=== PATIENT | female | born 1940 | race Caucasian/White ===

== ENCOUNTER 2024-10-13 10:22 | Outpatient (AMB) | payer OTHER, SELFPAY ==
--- NOTE | 2024-10-13 10:29 | A.OFFPC_ITS ---
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 Intake Note: New patient visit Grade Tamper Required: No Accompanied by: Daughter Allergies No Known Allergies Allergy (Verified 10/13/24 16:22) Tobacco use date assessed: 10/13/24 Fall risk assessment: No Falls in past year Last assessed Fall Risk: 10/13/24 Dental Screening Dental Screen Date: 10/13/24 Did you have a dental visit in the last 12 months?: Yes Did you have a dental problem in the last 6 months where you did not have access to dental care?: No Was dental information given to patient?: Patient has dentist HPI HPI Comments History of Present Illness Details The patient is an 84 year old female with a past medical history of afib, anxiety, PTSD, anemia, hypothyroid, osteoporosis presenting to [facility]. Transferring from [facility] (from [facility]) CV: on eliquis, toprol 25mg daily. Follows with [facility], Dr Marrero () and Dr Hdz. Anxiety: On [facility] History of cataract. Follows with Dr Jeter MSK: Has seen NS in the past Follows with [facility] for osteoporosis. DXA 2022 and recently repeated-back in osteopenia category Stopped mammo at 74 ROS CONSTITUTIONAL: Denies weight loss, fever and chills. HEENT: Denies changes in vision and hearing. RESPIRATORY: Denies SOB and cough. CV: Denies palpitations and CP GI: Denies abdominal pain, nausea, vomiting and diarrhea. : Denies dysuria and urinary frequency. MSK: Denies new myalgia and joint pain. SKIN: Denies rash and pruritus. NEUROLOGICAL: Denies headache PSYCHIATRIC: Denies recent changes in mood. PHYSICAL EXAM: GENERAL: Alert and oriented x 3. NAD EYES: EOMI. Anicteric. HENT: Moist mucous membranes. No scleral icterus. No cervical lymphadenopathy. LUNGS: Clear to auscultation bilaterally. CARDIOVASCULAR: Regular rate and rhythm. No murmur. No JVD. ABDOMEN: Soft, non-tender +bs EXTREMITIES: No edema. Non-tender. SKIN: No rashes or lesions. Warm. NEUROLOGIC: No focal neurological deficits. CN II-XII grossly intact PSYCHIATRIC: Cooperative. Appropriate mood and affect [facility] Social History Housing: House (upstairs in daughters home) Patient Tobacco Use Status: Never used Tobacco e-Cigarette/Vaping Use: Never Used Second Hand Smoke Exposure: No service: No Current occupational status: retired Cognitive needs: No Hearing needs: No Vision needs: Yes (reading glasses) Questionnaire PHQ-9 Over the last 2 weeks, how often have you been bothered by any of the following problems? 1. Little interest or pleasure in doing things: not at all 2. Feeling down, depressed, or hopeless: not at all 3. Trouble falling or staying asleep, or sleeping too much: not at all 4. Feeling tired or having little energy: not at all 5. Poor appetite or overeating: not at all 6. Feeling bad about yourself - or that you are a failure or have let yourself or your family down: not at all 7. Trouble concentrating on things, such as reading the newspaper or watching television: not at all 8. Moving or speaking so slowly that other people could have noticed. Or the opposite - being so fidgety or restless that you have been moving around a lot m ore than usual: not at all 9. Thoughts that you would be better off or of hurting yourself in some way: not at all Total score: 0 Depression Screening Interpretation: Negative Depression Screening Done: Yes 92555 - PHQ-9 Billing: Yes Source: Developed by Drs. Poli Lopez, Soumya Laughlin, Anish Cardona and colleagues, with an educational yogesh from [employer]. Thrive Questionnaire Date Thrive assessed: 10/06/24 I am a: Patient What is your living situation today?: I have a steady place to live Within the past 12 months, did the food you bought not last and you didn't have the money to get more?: Never true Within the past 12 months, did you worry whether your food would run out before you got money to buy more?: Never true Do you have trouble paying for medicines?: No Do you have trouble getting transportation to medical appointments?: No Do you have trouble paying your heating and electricity bill?: No Do you have trouble taking care of your child, family member or friend?: No Do you have trouble with day-to-day activities such as bathing, preparing meals, shopping, managing finances, etc.?: No Are you currently unemployed and looking for a job?: No Are you interested in more education?: No Please select the resources that you would like help with: None Currently or been in a relationship where the following occur: No concerns reported THRIVE Score: 0 AUDIT C Alcohol Use Questionnaire (AUDIT-C) 1. How often do you have a drink containing alcohol?: Never 2. How many drinks containing alcohol do you have on a typical day when you are drinking?: 1 or 2 3. How often do you have six or more drinks on one occasion?: Never Total Score: 0 JESSEE-7 AMB Questionnaire JESSEE-7 Date JESSEE - 7 assessed: 10/13/24 Feeling nervous, anxious, or on edge: 0 = Not at all Not being able to stop or control worryin = Not at all Worrying too much about different things: 0 = Not at all Trouble relaxin = Not at all Being so restless that it is hard to sit still: 0 = Not at all Becoming easily annoyed or irritable: 0 = Not at all Feeling afraid as if something awful might happen: 0 = Not at all Total JESSEE-7 score (0-4 normal; 5-9 mild; 10-14 moderate; 15-21 severe): 0 Source: Developed by Drs. Poli Lopez, Soumya Laughlin, Anish Cardona and colleagues, with an educational yogesh from [employer]. JESSEE-7 Assessment Billing JESSEE-7 Assessment Tool: JESSEE-7 Assessment 33644 Physical exam (Primary Care) Vital Signs: Last Vital Signs Pulse 68 10/13/24 10:39 Resp 14 10/13/24 10:39 BP 110/56 L 10/13/24 10:39 Pulse Ox 98 10/13/24 10:39 Oxygen Delivery Method Room Air 10/13/24 10:39 BMI result Body Mass Index 24.2 Tobacco/Smoking Status: Tobacco use Status Tobacco use date assessed 10/13/24 10/13/24 10:39 Patient Tobacco Use Status Never used Tobacco 10/13/24 10:39 e-Cigarette/Vaping Use Never Used 10/13/24 10:39 PHQ-9: PHQ-9 Score PHQ-9: Total score 0 10/13/24 16:26 Depression Screening Interpretation: Negative Thrive Assessment: Date of Thrive Assessment Date Thrive assessed 10/06/24 10/13/24 10:32 Currently or been in a relationship where the following occur: No concerns reported Coding Level of Care Code New Pt Level 4 (99818) Diagnoses Encounter to establish care Z76.89 Age related osteoporosis, unspecified pathological fracture presence M81.0 Osteoporosis type: age-related Presence of current pathological fracture: unspecified Paroxysmal atrial fibrillation I48.0 Atrial fibrillation type: paroxysmal Borderline abnormal TFTs R94.6 Additional Codes JESSEE-7 Assessment Billing - JESSEE-7 Assessment Tool: JESSEE-7 Assessment 90278 ([id number]) PHQ-9 - 17940 - PHQ-9 Billing: Yes ([id number]) Assessment & Plan Assessment & Plan (1) Encounter to establish care: Code(s): Z76.89 - Persons encountering health services in other specified circumstances Category: Medical (2) Osteoporosis: Code(s): M81.0 - Age-related osteoporosis without current pathological fracture Category: Medical Qualifiers: Osteoporosis type: age-related Presence of current pathological fracture: unspecified Qualified Code(s): M81.0 - Age-related osteoporosis without current pathological fracture (3) Atrial fibrillation: Code(s): I48.91 - Unspecified atrial fibrillation Category: Medical Qualifiers: Atrial fibrillation type: paroxysmal Qualified Code(s): I48.0 - Paroxysmal atrial fibrillation (4) Borderline abnormal TFTs: Code(s): R94.6 - Abnormal results of thyroid function studies Category: Medical Plan 84 to establish care Past medical, surgical, social reviewed Medications reconcile Labs ordered Follow up q6-12 months Orders: Orders Complete Blood Count Auto Diff 10/13/24 I48.0 - Paroxysmal atrial fibrillation, M48.50XA - Collapsed vertebra, not elsewhere classified, site unspecified, initial encounter for fracture, M81.0 - Age-related osteoporosis without current pathological fracture, R94.6 - Abnormal results of thyroid function studies, Z76.89 - Persons encountering health services in other specified circumstances Hemoglobin A1c 10/13/24 I48.0 - Paroxysmal atrial fibrillation, M48.50XA - Collapsed vertebra, not elsewhere classified, site unspecified, initial encounter for fracture, M81.0 - Age-related osteoporosis without current pathological fracture, R94.6 - Abnormal results of thyroid function studies, Z76.89 - Persons encountering health services in other specified circumstances Comprehensive Met. Panel 10/13/24 I48.0 - Paroxysmal atrial fibrillation, M48.50XA - Collapsed vertebra, not elsewhere classified, site unspecified, initial encounter for fracture, M81.0 - Age-related osteoporosis without current pathological fracture, R94.6 - Abnormal results of thyroid function studies, Z76.89 - Persons encountering health services in other specified circumstances Lipid Panel 10/13/24 I48.0 - Paroxysmal atrial fibrillation, M48.50XA - Colla psed vertebra, not elsewhere classified, site unspecified, initial encounter for fracture, M81.0 - Age-related osteoporosis without current pathological fracture, R94.6 - Abnormal results of thyroid function studies, Z76.89 - Persons encountering health services in other specified circumstances TSH reflex Free T4 10/13/24 I48.0 - Paroxysmal atrial fibrillation, M48.50XA - Collapsed vertebra, not elsewhere classified, site unspecified, initial encounter for fracture, M81.0 - Age-related osteoporosis without current pathological fracture, R94.6 - Abnormal results of thyroid function studies, Z76.89 - Persons encountering health services in other specified circumstances
[2024-10-13 10:39] VITALS: BP 110/56; PULSE 68; RESP 14; O2SAT 98; BMI 24.2
--- OUTSIDE RECORDS SUMMARY | 2024-10-13 11:55 | XMS_ITS | Clinical Summary ---
Author Organization [facility] Address [address] [place] [address] Phone Care Team Providers Care Price Checker Name Role Phone Hina Green MD Primary Care Provider [phone] Allergies Active Allergy Reactions Criticality Noted Date Comments Aspirin Anaphylaxis High 05/26/2020 Codeine Headache High 05/26/2020 Epinephrine Nausea And Vomiting High 05/26/2020 Opioids - Morphine Analogues Nausea And Vomiting 04/29/2024 Medications ashwagandha extract 500 mg capsule Take 1 Capsule by mouth daily. Active enzymes,digestive (DIGESTIVE ENZYMES ORAL) Take by mouth 3 times daily (with meals). Active doxylamine succinate (SLEEP AID, DOXYLAMINE, ORAL) Take 1 Tablet by mouth at bedtime. Active meclizine HCl (MECLIZINE ORAL) Take 1 tablet by mouth daily as needed. Active magnesium aspart,citrate,ox sandra (Triple Magnesium Complex) 400 mg magnesium capsule Take by mouth at bedtime. Active teriparatide (FORTEO) 20 mcg/dose (600mcg/2.4mL) injection Inject 0.08 mL (20 mcg total) under the skin 1 (one) time each day. Active apixaban (Eliquis) 2.5 mg tablet Take 1 tablet (2.5 mg total) by mouth 2 (two) times a day. 180 tablet 3 Active furosemide (LASIX) 20 mg tabletIndications :Paroxysmal atrial fibrillation (CMS/HCC V24, CMS/HCC V28),Atrial flutter, unspecified type (CMS/HCC V24, CMS/HCC V28),Tachy-jesus syndrome (CMS/HCC V24, CMS/HCC V28) Take 1 tablet (20 mg total) by mouth if needed. 5 Active metoprolol succinate (TOPROL-XL) 50 mg 24 hr tablet 1 tab daily 90 tablet 1 5 Active metoprolol succinate (Toprol XL) 25 mg 24 hr tablet Take 1 tablet (25 mg total) by mouth 1 (one) time each day. Do not crush or chew. 30 each 5 08/28/19 26 Active Active Problems Problem Noted Date Diagnosed Date Nonrheumatic tricuspid valve regurgitation 08/27 Atrial fibrillation with RVR (CMS/HCC V24, CMS/H CC V28) 04/06/2024 Assessment & Plan (07/15/2024 12:43 PM EST): Patient states that she feels remarkably better after her ablation. Her peripheral edema is resolved. She has no evidence of heart failure she has had no palpitations she has had no bleeding issues. We discussed the possibility of discontinuation of anticoagulation in the future that would be dependent on a 30-day monitor showing no A-fib and then a shared decision making. But for the present time I would continue with anticoagulation The above note was prepared with the help of voice recognition software. Please excuse any grammatical or spelling errors that may have occurred Assessment & Plan (04/13/2024 10:24 AM EST): Orders: ECG 12 lead Nuclear stress test with myocardial perfusion; Future Transthoracic echocardiogram (TTE) complete with PRN contrast, bubble, strain, and 3D order panel; Future Cardiac holter monitor (<= 48 hours); Future Compression fracture of body of thoracic vertebra ([facility] V24, CMS/HCC V28) 03/22/2022 Overview (04/02/2024): Last Assessment & Plan: Patient is 11 days s/p T7, T10 kyphoplasty. She states the procedure helped her preop back pain, she is able to do more around the house, sleep better. She has had no issues with the incisions, denies wound drainage, fever, sweats chills. Her main concern today that she was bringing up was that because of her scoliosis and short stature her lower rib tends to rub on her iliac crests bilaterally, she states this is a chronic problem, she was hoping there would be some type of a brace she could wear to lift the rib cage up. Ms. White is doing well s/p kyphoplasty which alleviated her back pain. She is concerned about her scoliosis, we talked about trying physical therapy for core strengthening and helping her posture. Also reviewed her case with Dr. Ballard, see if she has any additional recommendations. Patient states she is not interested in surgery for the scoliosis at this time. All questions answered. Prescription for PT given to patient. Murmur 12/16/2020 Assessment & Plan (04/13/2024 10:24 AM EST): She does have mild mitral regurgitation. She is asymptomatic from this at this time. We will update an echocardiogram. Agoraphobia 06/02/2020 Chronic atrial fibrillation (CMS/HCC V24, CMS/HC C V28) 06/02/2020 Assessment & Plan (04/30/2024 4:58 AM EST): Orders: ECG 12 lead Assessment & Plan (04/13/2024 10:24 AM EST): Patient has history of paroxysmal atrial fibrillation. She continues on anticoagulation with Eliquis 2.5 mg twice daily given her weight and advanced age. She was recently seen in the ER with Afib RVR and was given increased dose of metoprolol. We will update an echocardiogram to assess her cardiac function. We will arrange for a nuclear stress test to assess for ischemia and pvc monitor monitor to evaluate her overall heart rate. We will also arrange for EP evaluation. She continues to have increased heart rates, but asymptomatic. I am concerned about increasing rate control more due to history of bradycardia on monitor in the past. Orders: Nuclear stress test with myocardial perfusion; Future Transthoracic echocardiogram (TTE) complete with PRN contrast, bubble, strain, and 3D order panel; Future Cardiac holter monitor (<= 48 hours); Future Glaucoma 06/02/2020 Overview (04/02/2024): Bilaterally Hyperlipidemia 06/02/2020 Assessment & Plan (04/13/2024 10:24 AM EST): Patient's last LDL cholesterol was 108. She continues on red yeast rice. Major depressive disorder, r ecurrent episode, moderate (CMS/HCC V24, CMS/HCC V28) 06/02/2020 Osteoporosis 06/02/2020 DDD (degenerative disc disease), lumbar 05/26/19 Overview (04/02/2024): Pathological fracture of lumbar vertebra. PTSD (post-traumatic stress disorder) 05/26/2020 Resolved Problems Problem Noted Date Diagnosed Date Resolved Date Tachycardia 04/06/2024 04/13/2024 Abnormal EKG 12/14/2020 04/13/2024 Overview (04/02/2024): Last Assessment & Plan: She does have an abnormal EKG. She does have nonspecific T wave changes in anterolateral leads. She has no symptoms at this time to suspect unstable angina. She denies any chest pain or shortness of breath now or in the past. Again we will be checking her echocardiogram. We did discuss that her potassium levels are still high normal and this could affect her EKG. We did briefly review some of her [id number] supplements as she could be getting extra potassium and be unaware of this. Encounters Date Type Department Care Team Description 08/27/2024 9:40 AM EDT Office Visit [facility] - [address] [place] [address] Xiomara Barrett PA Atrial fibrillation with RVR (CMS/HCC V24, CMS/HCC V28) (Primary Dx); Murmur; Nonrheumatic tricuspid valve regurgitation 07/15/2024 10:20 AM EST Office Visit [facility] [address] [place] [id number] Heber Dukes MD Atrial fibrillation with RVR (CMS/HCC V24, CMS/HCC V28) (Primary Dx) from Last 3 Months Surgical History Surgery Date Site/Laterality Comments CATARACT EXTRACTION PROCEDURE: HISTORICAL CATARACT REMOVAL TOTAL KNEE ARTHROPLASTY PROCEDURE: HISTORICAL TOTAL KNEE REPLACE TONSILLECTOMY 1948 PROCEDURE: HISTORICAL TONSILLECTOMY OTHER SURGICAL HISTORY 05/24/2022 PROCEDURE: [place] PERQ VERT AGMNTJ CAVITY CRTJ UNI/BI CANNULJ LMBR; COMMENT: T7, T10 kyphoplasty, Dr. Ballard. Path: Benign ABLATION DONE ON 05/22/2024 AT [facility] Medical History Medical History Date Comments PTSD (post-traumatic stress disorder) 05/26/2020 DX:PTSD (post-traumatic stress disorder) DDD (degenerative disc disea se), lumbar 05/26/2020 DX:DDD (degenerative disc di sease), lumbar; COMMENT: Pathological fracture lumbar vertebra History of left knee replacement 05/26/2020 DX:History of left knee replacement Major depressive disorder, r ecurrent episode, moderate (CMS/HCC V24, CMS/HCC V28) 06/02/2020 DX:Major depressive disorder , recurrent episode, moderate ([facility]) Agoraphobia 06/02/2020 DX:Agoraphobia Hyperlipidemia 06/02/2020 DX:Hyperlipidemi a Osteoporosis 06/02/2020 DX:Osteoporosis Glaucoma 06/02/2020 DX:Glaucoma; COM MENT: Bilaterally History of skin cancer 06/02/2020 DX:Histor y of skin cancer; COMMENT: Face, per patient. S/P cataract surgery 05/26/2020 DX:S/P jarret ract surgery Atrial fibrillation (CMS/HCC V24, CMS/HCC V28) DX:Atrial fibrillation (HCC) Family History Medical History Relation Name Comments Heart attack Father Stroke Mother Relation Name Status Comments Father Mother Social History Tobacco Use Types Packs/Day Years Used Date Smoking Tobacco: Never Smokeless Tobacco: Never Tobacco Cessation:Counseling Given: Not Answered Alcohol Use Standard Drinks/Week Comments Never 0 (1 standard drink = 0.6 oz pur e alcohol) Comments Unknown Sex and Gender Information Value Date Recorded Sex Assigned at Not on file Legal Sex Female 3:42 PM EST Gender Identity Not on file Sexual Orientation Not on file Obstetrics History Last Filed Vital Signs Vital Sign Reading Time Taken Comments Blood Pressure 112/60 08/27/2024 9:40 AM EDT Pulse 61 08/27/2024 9:40 AM EDT Temperature - - Respiratory Rate - - Oxygen Saturation 99% 08/27/2024 9:40 AM EDT Inhaled Oxygen Concentration - - Weight 58.1 kg (128 lb) 08/27/2024 9:40 AM EDT Height 154.9 cm (5' 1 ) 08/27/2024 9:40 AM EDT Body Mass Index 24.19 08/27/2024 9:40 AM EDT Plan of Treatment Upcoming Encounters Date Type Department Care Team (Late st Contact Info) Description 01/20/2025 10:40 AM EDT Office Visit [facility] [address] [place] [address] [place] [address] Radha Harris NP [address] [place] [address] [address] [place] [address] 03/01/2025 9:40 AM EDT Office Visit [facility] - [address] [place] [address] Xiomara Barrett PA [address] [place] [address] Health Maintenance Due Date Last Done Comments DTaP,Tdap,and Td Vaccines (1 - Tdap) 1959 Pneumococcal Vaccine: 50+ Years (1 of 2 - PCV) 1958 Zoster Vaccines (1 of 2) 1989 IPV Vaccines (2 of 3 - Adult catch-up series) 01/17/2006 12/20/2005 RSV Immunization Adult Patients (1 - 1-dose 75+ series) 2014 Depression Screening 04/11/2022 Falls Risk Assessment 04/11/2022 Medicare Annual Wellness Visit 04/11/2022 Osteoporosis Screening (Bone Density Screening) 04/11/2022 Social Influencers of Health Screening 04/11/2022 COVID-19 Vaccine (4 - 2023-2 5 season) 2024 09/22/2021, 03/28/2021, 08/21/2020 Influenza Vaccine (Season Ended) 2025 Cholesterol Screening (Lipid Panel) 09/01/2028 09/02/2023 Hepatitis A Vaccines Aged Out 12/20/2005 No long er eligible based on patient's age to complete this topic HIB Vaccines Aged Out No longer eligi ble based on patient's age to complete this topic HPV Vaccines Aged Out No longer eligi ble based on patient's age to complete this topic Hepatitis B Vaccines Aged Out No long er eligible based on patient's age to complete this topic MMR Vaccines Aged Out No longer eligi ble based on patient's age to complete this topic Meningococcal ACWY Vaccine Aged Out N o longer eligible based on patient's age to complete this topic Meningococcal B Vaccine Aged Out No l onger eligible based on patient's age to complete this topic RSV Immunization Patients Under 20 months Aged Out No longer eligible b ased on patient's age to complete this topic Varicella Vaccines Aged Out No longer eligible based on patient's age to complete this topic Procedures Procedure Name Priority Date/Time Associated Diagnosis Comments LIPID PANEL Routine 09/02/2023 from Last 3 Months or Most Recently Relevant to Health Maintenance Results * Lipid panel (09/02/2023) LDL/HDL Ratio 0 Comment:No Interpretation Triglycerides 0 mg/dL Comment:No Interpretation Cholesterol 0 mg/dL Comment:No Interpretation HDL 0 mg/dL Comment:No Interpretation LDL Cholesterol 0 mg/dL Comment:No Interpretation Blood Venous blood specimen / Unknown Historical Provider LAB BLOOD ORDERABLES Heidi l Result from Last 3 Months or Most Recently Relevant to Health Maintenance Insurance [facility] [place] [address] [employer] MED[employer]ARE Care Teams Price Checker Relationship Specialty Start Date End Date Hina Green MD [address] [place] [id number] PCP - General Internal Medicine 08/27/24
== END 2024-10-13 11:07 | disposition home or self-care (01) ==
LOC: HO.HMCFM 10:22
PROVIDERS: PCP Internal Medicine; Visit Provider Internal Medicine
DX: Z76.89 Persons encountering health services in other specified circumstances (principal); M81.0 Age-related osteoporosis without current pathological fracture; I48.0 Paroxysmal atrial fibrillation; R94.6 Abnormal results of thyroid function studies

== ENCOUNTER → 2024-10-13 10:22 | Outpatient (BNVA) | payer OTHER, SELFPAY | PROVIDERS: PCP Internal Medicine; Visit Provider Internal Medicine | DX: Z76.89 Persons encountering health services in other specified circumstances (principal); M81.0 Age-related osteoporosis without current pathological fracture; I48.0 Paroxysmal atrial fibrillation; R94.6 Abnormal results of thyroid function studies; F41.9 Anxiety disorder, unspecified; Z79.01 Long term (current) use of anticoagulants | CPT/HCPCS: 96127 ==

== ENCOUNTER 2024-10-13 11:25 | Outpatient (REF) | payer OTHER, SELFPAY ==
[2024-10-13 14:53] LABS: MANUAL DIFF FLAG NO
[2024-10-13 15:01] LABS: Basophils Percent Auto 0.7 % (0-2); Eosinophils Absolute Auto 0.1 X10*3/uL (0.0-0.4); Eosinophils Percent Auto 2.7 % (0-4); Hematocrit 37.4 % (37.0-47.0); Hemoglobin 12.4 g/dl (12.0-16.0); Mean Corpuscular HGB Conc 33.2 g/dl (31.0-35.0); Mean Corpuscular Hemoglobin 32.7 pg (27.0-33.0); Mean Corpuscular Volume 98.7 fL (80.0-98.0); Mean Platelet Volume 10.4 fL (9.4-12.3); Monocytes Absolute Auto 0.4 X10*3/uL (0.1-1.2); Monocytes Percent Auto 10.6 % (2-11); Neutrophils Absolute Auto 2.5 x10*3/uL (2.0-8.3); Platelet Count 322 X10*3/uL (160-400); Red Blood Count 3.79 X10*6/uL (4.20-5.50); Red Cell Distribution Width 13.2 % (11.0-16.0); White Blood Count 4.1 X10*3/uL (4.8-10.8)
[2024-10-13 15:15] LABS: Estimated Average Glucose 97 mg/dL; Total Hemoglobin (HGBA1C) 3331.1433 umol/L
[2024-10-13 16:55] LABS: Alanine Aminotransferase 25 U/L (0-31); Albumin Level 4.4 g/dL (3.5-5.0); Anion Gap 9 (12-20); Aspartate Amino Transferase 35 U/L (5-31); Bilirubin Total 0.5 mg/dL (0.0-1.0); Blood Urea Nitrogen 21 mg/dL (9-16); Calcium 10.2 mg/dL (8.4-10.2); Carbon Dioxide 33 mmol/L (22-29); Chloride 100 mmol/L (96-108); Cholesterol 274 mg/dL (<200); Estimated Glomerular Filt Rate > 60; Glucose Random 76 mg/dL (60-115); HDL Cholesterol 77 mg/dL (>40); LDL Cholesterol Calculated 163 mg/dL (<100); Potassium 4.6 mmol/L (3.3-5.1); Sodium 137 mmol/L (135-145); Total Protein 7.1 g/dL (6.5-8.0); Triglycerides 171 mg/dL (<150)
[2024-10-13 17:13] LABS: Alkaline Phosphatase 127 U/L (39-117); TSH reflex Free T4 2.78 uIU/mL (0.32-4.0)
== END 2024-10-13 11:26 | disposition home or self-care (01) ==
LOC: HO.WFDLDS 11:25
PROVIDERS: Visit Provider Internal Medicine
DX: R94.6 Abnormal results of thyroid function studies (principal); I48.0 Paroxysmal atrial fibrillation; M48.50XA Collapsed vertebra, not elsewhere classified, site unspecified, initial encounter for fracture; M81.0 Age-related osteoporosis without current pathological fracture; Z76.89 Persons encountering health services in other specified circumstances; Z13.1 Encounter for screening for diabetes mellitus; Z13.220 Encounter for screening for lipoid disorders
CPT/HCPCS: 36415; 80053; 80061; 83036; 84443; 85025